=== PATIENT | male | born 1985 | race Caucasian/White ===

== ENCOUNTER 2017-01-15 17:59 | Emergency (ER) | payer OTHER ==
[~2017-01-15] VITALS: Ht 175.3 cm; Wt 86.2 kg
[2017-01-15 18:00] VITALS: BP 174/84
[2017-01-15] MEDS ORDERED: LIDOCAINE 2% MDV 20 ML VIAL SC ONE (18:15)
[2017-01-15] MEDS ORDERED: KEFL500C7 PO (18:38)
[2017-01-15] MEDS ORDERED: CEPHALEXIN 500 MG CAP PO ONE (18:45)
== END 2017-01-15 18:48 | disposition home or self-care (01) ==
LOC: M ED 18:24
DX: S69.92XA Unspecified injury of left wrist, hand and finger(s), initial encounter (principal); W26.0XXA Contact with knife, initial encounter; Y92.511 Restaurant or cafe as the place of occurrence of the external cause; Y93.G1 Activity, food preparation and clean up; Y99.0 Civilian activity done for income or pay; F17.200 Nicotine dependence, unspecified, uncomplicated

== ENCOUNTER 2017-05-03 22:54 | Emergency (ER) | payer OTHER ==
[~2017-05-03] VITALS: Ht 175.3 cm; Wt 86.4 kg
[~2017-05-03 22:54] MED LIST: KEFL500C17 PO
[2017-05-03] MEDS ORDERED: IBUPROFEN 600 MG TAB PO ONE (23:15)
[2017-05-03] MEDS ORDERED: IBUP-1022 PO (23:24)
[2017-05-03] MEDS ORDERED: CYCL10TA PO (23:24)
[2017-05-04 00:21] VITALS: BP 138/79
== END 2017-05-04 00:26 | disposition home or self-care (01) ==
LOC: M ED 22:54 → EDBD 22:54 → M ED 05-04 00:26
DX: T07 Unspecified multiple injuries (principal); S60.811A Abrasion of right wrist, initial encounter; V48.5XXA Car driver injured in noncollision transport accident in traffic accident, initial encounter; Y92.410 Unspecified street and highway as the place of occurrence of the external cause; Y93.89 Activity, other specified; Y99.8 Other external cause status

== ENCOUNTER 2017-05-09 07:37 | Emergency (ER) | payer BC, OTHER, SELFPAY ==
[~2017-05-09] VITALS: Ht 175.3 cm; Wt 86.4 kg
[~2017-05-09 07:37] MED LIST changes: +CYCL10TA PO; +IBUP-1022 PO
[2017-05-09] MEDS ORDERED: NORCO, ANEXSIA 5/325MG TABLET (HYDROcodone/ACETAMINOPHEN) PO ONE (08:45)
--- NOTE | 2017-05-09 09:10 | REP ---
Clinical: Trauma. Technique: Frontal view of the chest with multiple views of the right hemithorax. Findings: Frontal view of the chest demonstrates no acute cardiopulmonary process. Multiple views of the right hemithorax demonstrates no obvious acute rib fracture or pathology. Impression: Normal right rib series Signed by Abel Hunt MD 05/09/2017 09:01 A
[2017-05-09 09:24] VITALS: BP 146/84
[2017-05-09] MEDS ORDERED: NORCOTAB PO (09:35)
== END 2017-05-09 09:48 | disposition home or self-care (01) ==
LOC: M ED 07:37
DX: S30.810A Abrasion of lower back and pelvis, initial encounter (principal); S20.211A Contusion of right front wall of thorax, initial encounter; V48.0XXA Car driver injured in noncollision transport accident in nontraffic accident, initial encounter; Y92.410 Unspecified street and highway as the place of occurrence of the external cause; M54.5 Low back pain; G89.29 Other chronic pain; F17.210 Nicotine dependence, cigarettes, uncomplicated

== ENCOUNTER → 2017-06-08 | Outpatient (CLI) | payer BC ==
[~2017-06-08] MED LIST changes: +NORCOTAB PO
[2017-06-08 11:04] LABS: MEAN CORPUSCULAR HEMOGLOBIN 29.2 pg (27.0-33.0); MEAN CORPUSCULAR HGB CONC 33.7 g/dl (32.0-36.5); MEAN CORPUSCULAR VOLUME 86.7 fl (80.0-96.0); RED CELL DISTRIBUTION WIDTH 13.3 % (11.5-14.5); WHITE BLOOD COUNT 5.2 10^3/uL (4.0-10.0)
--- NOTE | 2017-06-08 11:17 | ECGEPIP ---
Stationary ECG Study [facility] Test Date: 2017-06-08 Pat Name: KAREN GRAY Department: Room: - Gender: M Tenter: [facility] : 1985 Requested By: Quintin Mora Order Number: [id number] Reading MD: Gina Bhardwaj Measurements Intervals [place] Rate: 61 P: 55 ND: 154 QRS: 42 QRSD: 92 T: 36 QT: 376 QTc: 381 Interpretive Statements SINUS RHYTHM WITH SINUS ARRHYTHMIA POSSIBLE RIGHT VENTRICULAR CONDUCTION DELAY NO PRIOR Electronically Signed On 06-08-2017 11:16:59 EDT by Gina Bhardwaj
[2017-06-08 16:47] LABS: ALBUMIN/GLOBULIN RATIO 1.29 (1.00-1.93); ALKALINE PHOSPHATASE 69 U/L (45-117); ALT/SGPT 29 U/L (12-78); ANION GAP 4 MEQ/L (8-16); AST/SGOT 17 U/L (15-37); BILIRUBIN,TOTAL 0.5 MG/DL (0.2-1.0); BLOOD UREA NITROGEN 13 MG/DL (7-18); CALCIUM LEVEL 8.9 MG/DL (8.5-10.1); CARBON DIOXIDE LEVEL 31 MEQ/L (21-32); CHLORIDE LEVEL 104 MEQ/L (98-107); CHOLESTEROL LEVEL 230 MG/DL (<200); CREATININE FOR GFR 1.03 MG/DL (0.70-1.30); GLOMERULAR FILTRATION RATE > 60.0 (>60); GLUCOSE, FASTING 81 MG/DL (70-105); POTASSIUM SERUM 4.9 MEQ/L (3.5-5.1); SODIUM LEVEL 139 MEQ/L (136-145); T UPTAKE 36 % (33-40); THYROXINE (T4) 7.1 UG/DL (4.5-12.0); TOTAL PROTEIN 7.1 GM/DL (6.4-8.2); TRIGLYCERIDES LEVEL 70 MG/DL (<150)
--- NOTE | 2017-06-09 01:22 | REP ---
Clinical: Idiopathic Hypertension . Comparison: None . Technique: PA and lateral. Findings: The mediastinum and cardiac silhouette are normal. The lung otoole are clear and without acute consolidation, effusion, or pneumothorax. The skeletal structures are intact and normal. Impression: 1. No acute cardiopulmonary process. Signed by Abel Hunt MD 06/09/2017 01:14 A
== END ==
LOC: M LAB 10:11
PROVIDERS: ATTEND Family Medicine
DX: I10 Essential (primary) hypertension (principal)

== ENCOUNTER 2018-04-30 02:37 | Inpatient (IN) | payer SELFPAY, BC ==
[2018-04-30] MEDS: NICOTINE 21MG/24HR 1 EA TRANSDERMAL TD (03:30)
[2018-04-30 03:41] LABS: HEMATOCRIT 51.2 % (42.0-52.0); HEMOGLOBIN 17.6 g/dl (13.5-17.5); MEAN CORPUSCULAR HGB CONC 34.4 g/dl (32.0-36.5); MEAN CORPUSCULAR VOLUME 87.4 fl (80.0-96.0); PLATELET COUNT, AUTOMATED 349 10^3/uL (150-450); RED BLOOD COUNT 5.86 10^6/uL (4.30-6.10); RED CELL DISTRIBUTION WIDTH 13.1 % (11.5-14.5); WHITE BLOOD COUNT 10.2 10^3/uL (4.0-10.0)
[2018-04-30 04:03] LABS: ALBUMIN 4.1 GM/DL (3.2-5.2); ALKALINE PHOSPHATASE 101 U/L (45-117); ALT/SGPT 33 U/L (12-78); ANION GAP 12 MEQ/L (8-16); AST/SGOT 20 U/L (7-37); BILIRUBIN,DIRECT < 0.1 MG/DL (0.0-0.2); BILIRUBIN,TOTAL 0.3 MG/DL (0.2-1.0); BLOOD UREA NITROGEN 11 MG/DL (7-18); CARBON DIOXIDE LEVEL 22 MEQ/L (21-32); CHLORIDE LEVEL 109 MEQ/L (98-107); CREATININE FOR GFR 1.12 MG/DL (0.70-1.30); ETHYL ALCOHOL (ETHANOL) 0.254 % (0.000-0.010); GLOMERULAR FILTRATION RATE > 60.0 (>60); GLUCOSE, FASTING 74 MG/DL (70-100); SALICYLATE LEVEL 2.2 MG/DL (5.0-30.0); SODIUM LEVEL 143 MEQ/L (136-145); TOTAL PROTEIN 8.2 GM/DL (6.4-8.2)
[2018-04-30 04:04] LABS: ACETAMINOPHEN LEVEL < 2.0 UG/ML (10.0-30.0)
[2018-04-30 04:05] LABS: AMPHETAMINES LEVEL URINE NEGATIVE (NEGATIVE); BARBITURATES URINE NEGATIVE (NEGATIVE); BENZODIAZEPINES URINE NEGATIVE (NEGATIVE); CANNABINOIDS URINE POSITIVE (NEGATIVE); COCAINE METABOLITE URINE POSITIVE (NEGATIVE); METHADONE URINE NEGATIVE (NEGATIVE); OPIATES URINE NEGATIVE (NEGATIVE); PHENCYCLIDINE URINE NEGATIVE (NEGATIVE)
[2018-04-30] MEDS: NORCO, ANEXSIA 5/325MG TABLET (HYDROcodone/ACETAMINOPHEN) PO (12:00)
[2018-04-30] MEDS ORDERED: MOM 30ML SUSPENSION UDC PO (16:15)
[2018-04-30] MEDS ORDERED: MAALOX 30 ML SUSP *UDC PO (16:15)
[2018-04-30] MEDS: LORazepam 1 MG TAB PO ×2 (17:14→21:46)
[2018-04-30] MEDS: traZODone 50 MG TAB PO (21:46)
[2018-05-01] MEDS: NICOTINE 21MG/24HR 1 EA TRANSDERMAL TD (09:13)
[2018-05-01] MEDS: LISINOPRIL *2.5 MG* TAB PO (12:13)
[2018-05-01] MEDS: FLUoxetine 10 MG CAP PO (12:13)
[2018-05-01] MEDS: ACETAMINOPHEN TAB 650MG DOSE (2X325MG) PO (13:06)
[2018-05-01] MEDS: traZODone 50 MG TAB PO (21:29)
[2018-05-02] MEDS: LISINOPRIL *2.5 MG* TAB PO (09:09)
[2018-05-02] MEDS: NICOTINE 21MG/24HR 1 EA TRANSDERMAL TD (09:09)
[2018-05-02] MEDS: FLUoxetine 10 MG CAP PO (09:09)
[2018-05-02] MEDS: ACETAMINOPHEN TAB 650MG DOSE (2X325MG) PO (15:30)
[2018-05-02] MEDS: traZODone 50 MG TAB PO (22:05)
[2018-05-03] MEDS: NICOTINE 21MG/24HR 1 EA TRANSDERMAL TD (08:01)
[2018-05-03] MEDS: LISINOPRIL *2.5 MG* TAB PO (08:01)
[2018-05-03] MEDS: FLUoxetine 10 MG CAP PO (08:01)
[2018-05-03] MEDS: DOXEPIN 25 MG CAP PO (21:51)
[2018-05-04] MEDS: FLUoxetine 10 MG CAP PO (09:08)
[2018-05-04] MEDS: LISINOPRIL *2.5 MG* TAB PO (09:08)
[2018-05-04] MEDS: NICOTINE 21MG/24HR 1 EA TRANSDERMAL TD (09:09)
== END 2018-05-04 13:10 | disposition home or self-care (01) | DRG 754 ==
LOC: M ED 02:37 → M ED INP 16:14 → M PSY 17:05
DX: F32.9 Major depressive disorder, single episode, unspecified (principal); I10 Essential (primary) hypertension; R45.851 Suicidal ideations; F10.10 Alcohol abuse, uncomplicated; F14.90 Cocaine use, unspecified, uncomplicated; F12.90 Cannabis use, unspecified, uncomplicated; F42.9 Obsessive-compulsive disorder, unspecified; Z79.899 Other long term (current) drug therapy; F17.210 Nicotine dependence, cigarettes, uncomplicated